=== PATIENT | female | born 1995 | race Caucasian/White ===

== ENCOUNTER 2024-08-18 06:16 | Emergency (ER) | payer SELFPAY ==
[2024-08-18] MEDS ORDERED: IBUPROFEN 400 MG TAB ONE (06:22)
[2024-08-18] MEDS ORDERED: IBUPROFEN 200 MG TAB PO ONE (06:22)
[2024-08-18 06:44] LABS: Specific Gravity 1.022 (1.005-1.030)
[2024-08-18 06:46] LABS: Specific Gravity 1.022 (1.005-1.030); Sqamous Epithelial <5 /HPF (None Seen); Urine Bacteria None Seen /HPF (<20); Urine Bilirubin NEGATIVE (Negative); Urine Blood Negative (Negative); Urine Clarity Extremely Turbid (Clear); Urine Color Yellow (Yellow); Urine Culture Reflex Order NOT NEEDED; Urine Glucose NEGATIVE (Negative); Urine Granular Casts 0-5 /LPF (None Seen); Urine Ketones NEGATIVE (Negative); Urine Microscopic Reflex YN ORDER UMIC; Urine Mucus 1+ /HPF (None Seen); Urine Nitrite NEGATIVE (Negative); Urine Protein 1+ (Negative); Urine RBC None Seen /HPF (None Seen); Urine Urobilinogen Normal (Normal); Urine WBC <5 /HPF (<5)
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
[2024-08-18] MEDS ORDERED: SMZ./TMP. 800/160 MG TABLET ONE (07:27)
--- NOTE | 2024-08-18 07:45 | RAD REPORT ---
EXAM: XR RIGHT HAND HISTORY: Pain. PAIN COMPARISON: None TECHNIQUE: Multiple projections of the right hand submitted. FINDINGS: No evidence of acute fracture or dislocation. Joint alignment is maintained. No soft tissu e swelling is seen.. No significant degenerative changes are present. IMPRESSION: No significant bone or joint abnormality.
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
[2024-08-18 08:51] VITALS: TEMP 97.6
[2024-08-18 08:53] VITALS: BP 111/69; O2SAT 98
== END 2024-08-18 08:05 | disposition home or self-care (01) ==
LOC: ER 06:16
DX: S60.221A Contusion of right hand, initial encounter (principal); S60.211A Contusion of right wrist, initial encounter; S20.221A Contusion of right back wall of thorax, initial encounter; S20.211A Contusion of right front wall of thorax, initial encounter; N39.0 Urinary tract infection, site not specified
CPT/HCPCS: 71046; 81001; 81025; 99283